=== PATIENT | male | born 1955 | race Caucasian/White ===

== ENCOUNTER 2016-08-23 05:18 | Emergency (ER) | payer MEDICARE ==
[2016-08-23 05:58] LABS: HEMOGLOBIN 8.8 gm/dl (14.0-17.5); RED BLOOD COUNT 3.97 M/UL (4.20-5.50); WHITE BLOOD COUNT 9.6 K/UL (4.5-11.0)
[2016-08-23 06:10] LABS: BUN/CREATININE RATIO 20 (0-10)
[2016-11-08] MEDS ORDERED: IRON325 M1 PO (11:06)
== END 2016-08-23 17:05 | disposition home or self-care (01) ==
LOC: ER1 05:18
PROVIDERS: Emergency Medicine
DX: R91.8 Other nonspecific abnormal finding of lung field (principal); D50.9 Iron deficiency anemia, unspecified; R11.0 Nausea; F17.210 Nicotine dependence, cigarettes, uncomplicated; Z85.048 Personal history of other malignant neoplasm of rectum, rectosigmoid junction, and anus
CPT/HCPCS: 36415; 71010; 71260; 80053; 82272; 82550; 82553; 83690; 83874; 83880; 84484; 85025; 85610; 85730; 93005; 94664; 96374; 96375; 99285; J2270; J2405; J7050; Q9962